=== PATIENT | female | born 1970 ===

== ENCOUNTER 2020-12-28 12:12 | Outpatient (NON) | payer MEDICARE, SELFPAY ==
[2020-12-28 12:35] LABS: Basophils Absolute Auto 0.04 K/mm3 (0.00-0.10); Basophils Percent Auto 0.4 % (0.0-1.0); Eosinophils Absolute Auto 0.64 K/mm3 (0.02-0.50); Eosinophils Percent Auto 6.9 % (1.0-6.0); Hematocrit 33.6 % (35.0-49.0); Hemoglobin 10.1 g/dL (12.0-15.0); Immature Granulocyte Absolute 0.04 K/mm3 (0.00-0.00); Immature Granulocyte Percent A 0.4 % (0.0-0.0); Lymphocytes Absolute Auto 2.38 K/mm3 (1.10-4.50); Lymphocytes Percent Auto 25.8 % (18.0-42.0); Mean Corpuscular HGB Conc 30.1 g/dL (32.0-36.0); Mean Corpuscular Hemoglobin 27.7 pg (27.0-31.0); Mean Corpuscular Volume 92.3 fL (78.0-102.0); Mean Platelet Volume 10.1 fl (9.2-11.8); Monocytes Absolute Auto 0.79 K/mm3 (0.10-0.90); Monocytes Percent Auto 8.5 % (2.0-11.0); Neutrophils Absolute Auto 5.4 K/mm3 (1.7-7.2); Platelet Count Result 373 K/mm3 (150-420); Red Blood Count 3.64 M/mm3 (4.20-5.40); Red Cell Distribution Width 13.2 % (11.6-14.4); White Blood Count 9.2 K/mm3 (4.8-10.8)
[2020-12-28 12:47] LABS: Alanine Aminotransferase 28 U/L (14-59); Albumin Level 3.1 g/dL (3.4-5.0); Alkaline Phosphatase 77 U/L (46-116); Anion Gap 11 mmol/L (8-16); Aspartate Amino Transferase 15 U/L (15-37); Bilirubin,Total 0.2 mg/dL (0.00-1.00); Blood Urea Nitrogen 16 mg/dL (7-18); Calcium 8.1 mg/dL (8.5-10.1); Carbon Dioxide 25 mmol/L (21-32); Chloride 105 mmol/L (98-108); Estimated Glomerular Filt Rate > 60; Glucose 100 mg/dL (70-99); Osmolality Calculated 293 mOsm/kg (285-295); Potassium 4.2 mmol/L (3.5-5.1); Sodium 141 mmol/L (136-145); Total Protein 7.1 g/dL (6.4-8.2); Vancomycin Trough 11.9 ug/mL (10.0-15.0)
== END 2020-12-28 12:13 | disposition home or self-care (01) ==
PROVIDERS: Visit Provider Family Medicine
DX: T84.59XA Infection and inflammatory reaction due to other internal joint prosthesis, initial encounter (principal); Z79.2 Long term (current) use of antibiotics
CPT/HCPCS: 36415; 80053; 80202; 85025

== ENCOUNTER 2023-04-16 10:45 | Emergency (ER) | payer MEDICARE, MEDICAID, SELFPAY ==
[2023-04-16] VITALS (23 sets, daily range): BP systolic 101–138; BP diastolic 27–78; PULSE 54–72; RESP 13–23; TEMP 36.5–37.2; O2SAT 96–100
--- NOTE | ~2023-04-16 | XR_ITS ---
XR chest 2V DATE: 04/16/2023 11:10 INDICATION: Left upper chest pain radiating to left arm. Shortness of breath. TECHNIQUE: PA and lateral views COMPARISON: None FINDINGS: Cardiomegaly. No hilar or mediastinal enlargement. No pulmonary infiltrate or consolidation is evident. Right glenohumeral joint replacement. Una devices of left humeral head. Diffuse osteopenia. Prominent loss of height and anterior wedging of a lower thoracic vertebral body. IMPRESSION: Cardiomegaly Reviewed, dictated and finalized at location A. IMPRESSION: Cardiomegaly
--- NOTE | 2023-04-16 10:51 | ECG_ITS ---
Measurements Intervals [place] Rate: 56 P: -38 [place]: 131 QRS: 28 QRSD: 104 T: 31 QT: 494 QTc: 480 Interpretive Statements SINUS BRADYCARDIA PROLONGED QT INTERVAL ABNORMAL ECG NO PREVIOUS ECG AVAILABLE FOR COMPARISON Electronically Signed On 04-17-2023 9:31:03 CDT by Dakota Cronin M.D.
--- NOTE | 2023-04-16 10:59 | ED.CHESTPAIN ---
HPI - Chest Pain General Chief Complaint: Chest Pain Stated Complaint: chest pain Time Seen by Provider: 04/16/23 10:51 Source: patient Mode of arrival: ambulatory Limitations: no limitations History of Present Illness HPI narrative: Patient is a 52-year-old female with chest pain for the past 2 days. She has a history of a bad valve and goes to [facility] for cardiology. She is on blood pressure medication. No history of CAD. MD complaint: chest pain Onset (ago): day(s) (2) Timing of current episode: episodic Prior episodes: No Onset: during rest, during exertion and awoke with symptoms Pain location: substernal and left chest Pain radiation: none Severity: moderate Pain scale (0-10): 6 Quality: tightness and sharp Relieving factors: nothing Exacerbating factors: nothing Treatment prior to arrival: none Risk Factors Coronary artery disease risk factors: none Thoracic aortic dissection risk factors: none Related Data On Oral Contraceptives: No Home Medications Medication Instructions Recorded Confirmed carvedilol 6.25 mg tablet 6.25 mg PO DAILY 04/16/23 04/16/23 citalopram 20 mg tablet 20 mg PO DAILY 04/16/23 04/16/23 omeprazole 40 mg capsule,delayed 40 mg PO DAILY 04/16/23 04/16/23 release oxybutynin chloride 10 mg 10 mg PO DAILY 04/16/23 04/16/23 tablet,extended release 24 hr simvastatin 40 mg tablet 40 mg PO HS 04/16/23 04/16/23 spironolactone 25 mg tablet 25 mg PO DAILY 04/16/23 04/16/23 trazodone 50 mg tablet 50 mg PO HS 04/16/23 04/16/23 Allergies Allergy/AdvReac Type Severity Reaction Status Date / Time No Known Allergies Allergy Unverified 02/01/18 14:29 Review of Systems Review of Systems: All systems reviewed & are unremarkable except as noted in HPI and below Constitutional: Constitutional: Reports no additional constitutional complaints Eyes: Eyes: Reports no additional eye complaints ENT: Reports system reviewed and no additional complaints, except as documented Cardiovascular: Cardiovascular: Reports no additional cardiovascular complaints Respiratory: Respiratory: Reports no additional respiratory complaints Gastrointestinal: Gastrointestinal: Reports no additional gastrointestinal complaints Genitourinary: Genitourinary: Reports no additional female genitourinary complaints Musculoskeletal: Musculoskeletal: Reports no additional musculoskeletal complaints Integumentary/Breasts: Skin/Breast: Reports system reviewed and no additional complaints, except as docu Neurologic: Reports system reviewed and no additional complaints, except as documented Psychiatric: Psychiatric: Reports no additional psychiatric complaints Endocrine: Endocrine: Reports no additional endocrine complaints Hematologic/Lymphatic: Hematologic/Lymphatic: Reports no additional hematologic/lymphatic complaints Allergic/Immunologic: Allergic/Immunologic: Reports no additional allergic/immunologic complaints PMFSH Social History Social History Smoking status: Never smoker Exam Const: General: healthy appearing Nutritional Appearance: well nourished Orientation/consciousness: patient oriented x3 HENMT: Head: normal to inspection Ears: external ears normal Face/Nose/Sinus: Normal external nose present Eyes: Conjunctivae: conjunctivae normal Pupils: Equal, round and reactive pupils present EOM: EOMs intact bilaterally Neck: Neck: normal visual inspection Chest: Chest palpation & inspection: normal inspection of the chest and tenderness ( Anterior chest wall left chest has tenderness to palpation; reproducible ) pectoral muscle Resp: Effort & Inspection: normal respiratory effort Auscultation: clear to auscultation bilaterally Cardio: Rate: regular rate Rhythm: regular rhythm Heart sounds: no murmurs GI: Inspection: non-distended GI Palp: Yes Soft to palpation, No Tenderness to palpation present (GI), No Guarding due to
[2023-04-16 11:05] LABS: Basophils Absolute Auto 0.07 K/mm3 (0.00-0.10); Basophils Percent Auto 0.7 % (0.0-1.0); Eosinophils Absolute Auto 0.68 K/mm3 (0.02-0.50); Eosinophils Percent Auto 7.2 % (1.0-6.0); Hematocrit 41.6 % (35.0-49.0); Hemoglobin 13.2 g/dL (12.0-15.0); Immature Granulocyte Absolute 0.03 K/mm3 (0.00-0.00); Immature Granulocyte Percent A 0.3 % (0.0-0.0); Lymphocytes Absolute Auto 2.01 K/mm3 (1.10-4.50); Lymphocytes Percent Auto 21.1 % (18.0-42.0); Mean Corpuscular HGB Conc 31.7 g/dL (32.0-36.0); Mean Corpuscular Hemoglobin 28.9 pg (27.0-31.0); Mean Corpuscular Volume 91.2 fL (78.0-102.0); Monocytes Absolute Auto 0.48 K/mm3 (0.10-0.90); Neutrophils Absolute Auto 6.2 K/mm3 (1.7-7.2); Neutrophils Percent Auto 65.7 % (50.0-70.0); Platelet Count Result 287 K/mm3 (150-420); Red Blood Count 4.56 M/mm3 (4.20-5.40); White Blood Count 9.5 K/mm3 (4.8-10.8)
[2023-04-16 11:20] LABS: INR 0.9; Partial Thromboplastin Time 26.4 SEC (23.90-30.70); Prothrombin Time 10.3 Seconds (9.50-12.10)
[2023-04-16 11:28] LABS: Alanine Aminotransferase 32 U/L (14-59); Albumin Level 3.3 g/dL (3.4-5.0); Alkaline Phosphatase 74 U/L (46-116); Aspartate Amino Transferase 14 U/L (15-37); Bilirubin,Total 0.3 mg/dL (0.00-1.00); Blood Urea Nitrogen 13 mg/dL (7-18); Calcium 8.5 mg/dL (8.5-10.1); Carbon Dioxide 29 mmol/L (21-32); Chloride 103 mmol/L (98-108); Estimated Glomerular Filt Rate > 60; Glucose 110 mg/dL (70-99); Lipase 34 U/L (16-77); NT Pro B Type Natriuretic Pept 125 pg/mL (0-125); Potassium 3.8 mmol/L (3.5-5.1); Total Protein 7.3 g/dL (6.4-8.2)
[2023-04-16] MEDS: NITROGLYCERIN SL 0.4 MG TABLET SUBLINGUAL (11:48)
[2023-04-16 11:56] LABS: Appearance Urine Cloudy (Clear); Blood Urine Negative (Negative); Color Urine Yellow (Yellow); Glucose Urine UA Negative (Negative); Ketones Urine Negative (Negative); Protein Urine Negative (Negative); Specific Grav Ur 1.015 (1.010-1.020); pH Urine 6.5 (5.0-8.0)
[2023-04-16 11:57] LABS: Add Urine Microscopic? NO; Bilirubin Urine Negative (Negative); Leukocyte Esterase Ur Negative LEU/UL (Negative); Nitrate Urine Negative (Negative); Urobilinogen Urine 0.2 mg/dL (0.2-1.0)
[2023-04-16] MEDS: ASPIRIN 325 MG ENTERIC TABLET PO (12:15)
[2023-04-16 12:27] LABS: Anion Gap 7 mmol/L (8-16); Osmolality Calculated 289 mOsm/kg (285-295); Sodium 139 mmol/L (136-145)
[2023-04-16] MEDS: MORPHINE SULFATE (*CRX) 2 MG/ML INJ IV PUSH (13:39)
--- NOTE | 2023-04-16 13:43 | PC.NURSE ---
spouse & family here all smelled like marijuana & alcohol
[2023-04-16] MEDS: NITROGLYCERIN OINTMENT 1 INCH DOSE 0.5 INCH TRANSDERM (16:01)
[2023-04-16 17:03] LABS: Troponin I 5.8 ng/L (0.00-60.4)
== END 2023-04-16 16:54 | disposition short-term general hospital (02) ==
PROVIDERS: Emergency Provider Emergency Medicine; PCP Family Medicine
DX: R07.9 Chest pain, unspecified (principal); I20.9 Angina pectoris, unspecified
CPT/HCPCS: 36415; 71046; 80053; 81003; 83690; 83880; 84484; 85025; 85610; 85730; 93005; 96374; 99285; A9270; J2270